=== PATIENT | female | born 1990 | race Native Hawaiian/Other Pacific Islander ===

== ENCOUNTER 2016-03-26 19:40 | Emergency (ER) | payer OTHER ==
[~2016-03-26] VITALS: Ht 160 cm; Wt 63.5 kg
[2016-03-26 19:45] VITALS: BP 104/66; TEMP 99
== END 2016-03-26 21:43 | disposition home or self-care (01) ==
LOC: ED 19:40
DX: S60.222A Contusion of left hand, initial encounter (principal); W23.0XXA Caught, crushed, jammed, or pinched between moving objects, initial encounter; Y92.410 Unspecified street and highway as the place of occurrence of the external cause
CPT/HCPCS: 99282

== ENCOUNTER 2018-06-16 02:55 | Emergency (ER) | payer OTHER ==
[~2018-06-16] VITALS: Ht 160 cm; Wt 76.7 kg
[2018-06-16 03:09] VITALS: BP 110/68; TEMP 98.1
== END 2018-06-16 03:52 | disposition home or self-care (01) ==
LOC: ED 02:55
DX: M94.0 Chondrocostal junction syndrome [Tietze] (principal); R07.89 Other chest pain
CPT/HCPCS: 99283

== ENCOUNTER 2018-09-21 22:30 | Emergency (ER) | payer OTHER ==
[~2018-09-21] VITALS: Ht 160 cm; Wt 76.2 kg
[2018-09-21 23:31] LABS: PLATELET COUNT 512 K/uL (152-353)
[2018-09-21 23:40] LABS: POTASSIUM 3.7 mmol/L (3.6-5.2)
[2018-09-22 01:23] VITALS: BP 130/73; TEMP 99.2
== END 2018-09-22 01:37 | disposition home or self-care (01) ==
LOC: ED 22:30
PROVIDERS: Internal Medicine
DX: E86.0 Dehydration (principal); B34.9 Viral infection, unspecified; R11.2 Nausea with vomiting, unspecified; D72.829 Elevated white blood cell count, unspecified
CPT/HCPCS: 36415; 80053; 81000; 81025; 82150; 83690; 85027; 96360; 96375; 99284; J2405

== ENCOUNTER 2018-09-23 11:57 | Emergency (ER) | payer OTHER ==
[~2018-09-23] VITALS: Ht 160 cm; Wt 76.2 kg
[2018-09-23 12:44] LABS: PLATELET COUNT 422 K/uL (152-353)
[2018-09-23 17:20] VITALS: BP 102/56; TEMP 99.3
== END 2018-09-23 17:28 | disposition short-term general hospital (02) ==
LOC: ED 11:57
PROVIDERS: Family Medicine
DX: R10.11 Right upper quadrant pain (principal); R11.2 Nausea with vomiting, unspecified; K80.00 Calculus of gallbladder with acute cholecystitis without obstruction; D72.829 Elevated white blood cell count, unspecified
CPT/HCPCS: 80053; 81000; 82150; 83605; 83690; 85027; 96360; 96361; 96365; 96374; 99284; J2270; J2405; J2543; Q9963

== ENCOUNTER 2018-09-23 17:27 | Outpatient (CLI) | payer OTHER | END 2018-09-23 18:04 | disposition short-term general hospital (02) | LOC: AMB 17:27 | DX: R10.11 Right upper quadrant pain (principal) | CPT/HCPCS: A0425; A0429 ==

== ENCOUNTER 2019-03-17 13:30 | Emergency (ER) | payer OTHER ==
[~2019-03-17] VITALS: Ht 160 cm; Wt 65.8 kg
[2019-03-17 14:27] VITALS: BP 147/73; TEMP 98.1
== END 2019-03-17 14:32 | disposition home or self-care (01) ==
LOC: ED 13:30
DX: H66.92 Otitis media, unspecified, left ear (principal); F17.210 Nicotine dependence, cigarettes, uncomplicated
CPT/HCPCS: 96372; 99283; J1885

== ENCOUNTER 2019-11-02 21:08 | Emergency (ER) | payer OTHER ==
[~2019-11-02] VITALS: Ht 160 cm; Wt 68.0 kg
[2019-11-02 21:18] VITALS: BP 105/52; TEMP 98.2
== END 2019-11-02 23:49 | disposition home or self-care (01) ==
LOC: ED 21:08
DX: M62.838 Other muscle spasm (principal)
CPT/HCPCS: 96372; 99282; J1885

== ENCOUNTER 2019-11-07 14:41 | Outpatient (CLI) | payer OTHER | END 2019-11-07 22:03 | disposition home or self-care (01) | LOC: US 14:41 | DX: M79.605 Pain in left leg (principal) ==

== ENCOUNTER 2020-01-09 19:21 | Emergency (ER) | payer OTHER ==
[~2020-01-09] VITALS: Ht 160 cm; Wt 81.6 kg
[2020-01-09 21:15] VITALS: BP 100/62; TEMP 98.4
== END 2020-01-09 21:15 | disposition home or self-care (01) ==
LOC: ED 19:21
DX: S93.491A Sprain of other ligament of right ankle, initial encounter (principal); X50.1XXA Overexertion from prolonged static or awkward postures, initial encounter; Y92.89 Other specified places as the place of occurrence of the external cause
CPT/HCPCS: 96372; 99283; J1885

== ENCOUNTER 2020-07-18 22:52 | Emergency (ER) | payer OTHER ==
[~2020-07-18] VITALS: Ht 160 cm; Wt 84.4 kg
[2020-07-19 01:38] VITALS: BP 113/56; TEMP 98.2
== END 2020-07-19 01:38 | disposition home or self-care (01) ==
LOC: ED 22:52
DX: S00.03XA Contusion of scalp, initial encounter (principal); S50.02XA Contusion of left elbow, initial encounter; V89.2XXA Person injured in unspecified motor-vehicle accident, traffic, initial encounter; Y92.488 Other paved roadways as the place of occurrence of the external cause
CPT/HCPCS: 96372; 99283; J1885

== ENCOUNTER 2020-11-18 18:00 | Emergency (ER) | payer OTHER ==
[~2020-11-18] VITALS: Ht 160 cm; Wt 83.0 kg
[2020-11-18 19:49] LABS: PLATELET COUNT 506 K/uL (152-353)
[2020-11-18 20:02] LABS: POTASSIUM 4.2 mmol/L (3.6-5.2)
[2020-11-18 21:25] VITALS: BP 109/67; TEMP 96.6
== END 2020-11-18 21:25 | disposition home or self-care (01) ==
LOC: ED 18:00
PROVIDERS: Emergency Medicine Emergency Medical Services
DX: B34.9 Viral infection, unspecified (principal); Z20.822 Contact with and (suspected) exposure to COVID-19
CPT/HCPCS: 36415; 80053; 81000; 81025; 85027; 87635; 96360; 96375; 99284; J2405; U0003

== ENCOUNTER 2020-12-03 17:30 | Emergency (ER) | payer OTHER ==
[~2020-12-03] VITALS: Ht 160 cm; Wt 83.0 kg
[2020-12-03 17:40] VITALS: BP 128/80; TEMP 99.5
== END 2020-12-03 18:28 | disposition home or self-care (01) ==
LOC: ED 17:30
DX: H65.191 Other acute nonsuppurative otitis media, right ear (principal); J20.9 Acute bronchitis, unspecified; F17.290 Nicotine dependence, other tobacco product, uncomplicated
CPT/HCPCS: 99282

== ENCOUNTER 2020-12-04 09:20 | Emergency (ER) | payer OTHER ==
[~2020-12-04] VITALS: Ht 160 cm; Wt 83.9 kg
[2020-12-04 09:25] VITALS: BP 136/88; TEMP 99.2
== END 2020-12-04 10:15 | disposition home or self-care (01) ==
LOC: ED 09:20
DX: J06.9 Acute upper respiratory infection, unspecified (principal); U07.1 COVID-19
CPT/HCPCS: 87635; 99283; U0003

== ENCOUNTER 2021-05-20 14:00 | Emergency (ER) | payer OTHER ==
[~2021-05-20] VITALS: Ht 160 cm; Wt 73.5 kg
[2021-05-20 14:25] VITALS: TEMP 97.8
[2021-05-20 16:25] VITALS: BP 118/69
== END 2021-05-20 16:25 | disposition home or self-care (01) ==
LOC: ED 14:00
DX: M25.562 Pain in left knee (principal)
CPT/HCPCS: 99282

== ENCOUNTER 2022-06-11 23:48 | Emergency (ER) | payer OTHER ==
[~2022-06-11] VITALS: Ht 160 cm; Wt 74.8 kg
[2022-06-11 23:52] VITALS: TEMP 98.1
[2022-06-12 00:50] VITALS: BP 112/71
== END 2022-06-12 00:51 | disposition home or self-care (01) ==
LOC: ED 23:48
DX: K29.60 Other gastritis without bleeding (principal)
CPT/HCPCS: 99282

== ENCOUNTER 2022-06-30 02:52 | Emergency (ER) | payer OTHER ==
[~2022-06-30] VITALS: Ht 160 cm; Wt 74.8 kg
[2022-06-30 03:00] VITALS: TEMP 97.9
[2022-06-30 04:10] VITALS: BP 122/76
== END 2022-06-30 04:10 | disposition home or self-care (01) ==
LOC: ED 02:52
DX: J32.8 Other chronic sinusitis (principal); H65.193 Other acute nonsuppurative otitis media, bilateral; F17.290 Nicotine dependence, other tobacco product, uncomplicated
CPT/HCPCS: 96372; 99283; J0696; J1885